=== PATIENT | female | born 1985 | race Caucasian/White ===

== ENCOUNTER 2016-12-17 07:22 | Day surgery (SDC) | payer BC ==
[2016-12-17] VITALS (36 sets, daily range): BP systolic 90–140; BP diastolic 55–81; PULSE 59–113; RESP 13–22; TEMP 97–98.3; O2SAT 90–100; Ht 163.8 cm; Wt 65.0 kg
[~2016-12-17] VITALS: Ht 163.8 cm; Wt 65.0 kg
[~2016-12-17 07:22] MED LIST: BUSP15TA3 PO; CLON0.5T4 PO; HYDR-347 PO; LIDOCAINE 1% (10mg/ml) 2ml SDV INJ ONE; LR 1,000 ML IV SCH; NORMAL SALINE 1,000 ML IV ONE; VENL-69 PO
[2016-12-17 08:07] LABS: BLOOD, URINE NEGATIVE (NEGATIVE); COLOR,URINE YELLOW (YELLOW); LEUKOCYTE ESTERASE ,URINE NEGATIVE (NEGATIVE); NITRITE,URINE NEGATIVE (NEGATIVE); UROBILINOGEN,URINE 0.2 EU/DL (NORMAL)
[2016-12-17 08:08] LABS: BASOPHILS % (AUTO) 0.4 % (0-2); HGB - HEMOGLOBIN 14.8 GM/DL (12-16); IMMATURE GRANULOCYTE # (AUTO) 0.02 T/MM3 (0.00-0.03); IMMATURE GRANULOCYTE % (AUTO) 0.4 % (0.0-0.5); LYMPHOCYTES # (AUTO) 2.2 T/MM3 (1-4.8); LYMPHOCYTES % (AUTO) 38.4 % (23-45); MEAN CORPUSCULAR HGB 32.1 UUG (26-34); MEAN CORPUSCULAR HGB CONC(MCHC 34.4 GM/DL (31-37); MEAN CORPUSCULAR VOLUME 93.3 UM3 (80-100); MEAN PLATELET VOLUME 10.3 UM3 (9.4-12.4); MONOCYTES # (AUTO) 0.4 T/MM3 (0-0.8); MONOCYTES % (AUTO) 6.3 % (0-9.0); NEUTROPHILS #(AUTO)-ABSOLUTE 3.1 T/MM3 (1.8-7.7); NEUTROPHILS % (AUTO) 54.5 % (33-66); RED BLOOD COUNT 4.61 M/MM3 (4.00-5.20); WBC - WHITE BLOOD COUNT 5.7 T/MM3 (4.5-11.0)
[2016-12-17 08:17] LABS: ALBUMIN 4.2 G/DL (3.5-5.0); ALBUMIN/GLOBULIN RATIO 1.4 RATIO (1.1-2.2); ALKALINE PHOSPHATASE 48 U/L (38-126); ALT (SGPT) 24 U/L (9-52); ANION GAP 6 MEQ/L (5-15); AST (SGOT) 18 U/L (14-36); BUN/CREATININE RATIO 10 RATIO (6-26); CALCIUM 9.1 MG/DL (8.4-10.2); CHLORIDE 108 MEQ/L (98-107); CO2 - CARBON DIOXIDE 29 MEQ/L (22-30); CREATININE 0.7 MG/DL (0.7-1.2); GLOMERULAR FILTRATION RATE 97; GLUCOSE 90 MG/DL (65-110); POTASSIUM 4.1 MEQ/L (3.6-5); SODIUM 143 MEQ/L (134-144); TOTAL PROTEIN 7.2 G/DL (6.3-8.2)
--- NOTE | 2016-12-17 08:18 | NUR ---
TEST DOSE TEST DOSE OF KEFZOL GIVEN (1CC) AT THIS TIME IV. WILL CONTINUE TO MONITOR PATIENT FOR ALLERGIC REACTION.
--- NOTE | 2016-12-17 08:40 | ANESPREOP ---
Anesthesia Record Date and Time DATE: 12/17/16 TIME: 08:39 Pre-Op Diagnosis Menorrhea Proposed Surgical Procedure ROBOTIC LAP HYST Allergies: Coded Allergies: Penicillins (Verified Allergy, Mild, HIVES, 12/17/16) Ht/Wt/BMI Height: 5 ' 4.50 " Weight: 62.800 kg BMI: 23.4 kg/m2 Vital Signs Date Time Temp Pulse Resp B/P Pulse Ox O2 Delivery O2 Flow Rate FiO2 12/17/16 07:30 98.3 63 16 109/55 100 Room Air Medications Inpatient Medications Current Medications Medications (Trade) Dose Ordered Sig/Margarette Start Time Stop Time Status Last Admin Dose Admin Lactated Ringer's (Lactated Ringers) 1,000 ml @ 100 mls/hr Q10H 12/17/16 07:00 12/17/16 07:00 DC Buspirone HCl (Buspirone HCl) 15 Mg Tablet, 1 TAB PO BID, (Reported) Last Taken: on 12/16/16 0800 Clonazepam (Clonazepam) 0.5 Mg Tablet, 1 TAB PO DAILY PRN for INSOMNIA, (Reported) Last Taken: on 12/14/16 2100 Hydrocodone/Acetaminophen (Henrietta 7.5-325 Tablet ) 7.5-325 Tablet, 1 TAB PO Q6-8HPRN PRN for PAIN, (Reported) Last Taken: on 12/14/16 0800 Venlafaxine HCl (Venlafaxine HCl ER) 150 Mg Cap.er.24h, 1 CAP PO DAILY, (Reported) Last Taken: on 12/16/16 0800 Currently on Beta Libby: No Medical/Surgical History Anesthesia PMH: Reports: Anxiety, Depression, Renal Disease (HORSESHOE KIDNEY) , Denies: *Diabetes, Anesthesia Reactions (NO AIRWAY ISSUES), Arthritis, Cancer , Clotting Problems, Glaucoma, Malignant Hyperthermia, Sleep Apnea, Thyroid Disease Smoking Status: Current every day smoker Has pt. smoked today?: No # of Packs per Day: 1/4 # of Years: 2 Use Chewing Tobacco?: No Second Hand Exposure: No Substance Use Type: does not use Alcohol Intake: rarely HX of Last Menstrual Period: NOVEMBER 2016 Past Surgical History Orthopedic Surgeries: Abdominal Surgeries: Yes - APPY Genitourinary Surgeries: Cardiac Surgeries: Endocrine Surgeries: Reproductive Surgeries: Yes - X3 ,LAPAROSCOPY Neurological Surgeries: Ear Surgeries: Nose Surgeries: Throat Surgeries: Other Surgeries: Anesthesia Adverse Reactions: FOUND none Family Hx of Anesthesia Advers: none Pertinent Findings Laboratory Tests 12/17/16 07:51 12/17/16 07:52 Test 12/17/16 07:52 Human Chorionic Gonadotropin, Qual Negative (NEGATIVE) EKG Rhythm: Sinus Rhythm Physical Exam Respiratory: Lungs clear Cardiovascular: FOUND Regular rate, rhythm Airway Assessment Mallampati Score: II TMD: 3 Fingerbreadths Neck Extension: Good Overall Assessment: No Airway Concerns ASA: 2 Plan Anesthesia Plan: GETA Discussion Discussed risks/options/alternatives of anesthesia and questions answered. Patient consents. Nursing pain assessment noted. Attestation Statement Prior to the delivery of any anesthetic medication, I examined the patient, developed the plan, obtained the patient's consent and discussed the risk and benefits of the procedure with the patient/guardian. TARA HOLLINS CANE CUTTER Dec 17, 2016 08:40
--- NOTE | 2016-12-17 08:44 | NUR ---
TEST DOSE NO REACTION FROM TEST DOSE OF KEFZOL NOTED AT THIS TIME.
[2016-12-17] MEDS ORDERED: PROPOFOL 200mg 20 ML IV ONE (08:47)
[2016-12-17] MEDS ORDERED: ROCURONIUM 50mg/5ml INJECTION IV ONE (08:47)
[2016-12-17] MEDS ORDERED: BUPIVACAINE 0.25% (2.5mg/ml) INJ 30ml SDV ONE (08:52)
[2016-12-17] MEDS ORDERED: CEFAZOLIN 1 G in NORMAL SALINE 100 ML IV ONE (09:12)
[2016-12-17] MEDS ORDERED: FENTANYL 250mcg/5ml INJECTION ONE (09:27)
[2016-12-17] MEDS ORDERED: ONDANSETRON 4mg/2ml INJECTION ONE (09:43)
[2016-12-17] MEDS ORDERED: DEXAMETHASONE 4mg/ml - 1ml INJECTION ONE (09:43)
[2016-12-17] MEDS ORDERED: ONDANSETRON 4mg/2ml INJECTION IV PRN ×2 (11:00→11:15)
[2016-12-17] MEDS ORDERED: METOCLOPRAMIDE 10mg/2ml INJECTION IV PRN ×2 (11:00→11:15)
[2016-12-17] MEDS ORDERED: KETOROLAC 30mg/ml INJECTION ONE (11:12)
[2016-12-17] MEDS ORDERED: HYDROCODONE/APAP 5 mg/325 mg TABLET PO PRN (11:15)
[2016-12-17] MEDS ORDERED: HYDROMORPHONE 2mg/ml INJECTION IV PRN (11:15)
[2016-12-17] MEDS ORDERED: FENTANYL 100mcg/2ml INJECTION IV PRN (11:15)
--- NOTE | 2016-12-17 11:15 | GYNOPNOTE1 ---
APPLICATOR SPRAYER Postoperative Note Date of Operation: 12/17/16 Preoperative Diagnosis: Dysmenorrhea, Pelvic Pain, Endometriosis Postoperative Diagnosis: Same as Preoperative Hysterectomy: RALH Bilateral Salpingectomy Surgeon: Stacie Cardoza MD Anesthesia Type: general Comments EBL 20cc STACIE CARDOZA MD Dec 17, 2016 11:15
[2016-12-17] MEDS: HYDROMORPHONE 2mg/ml INJECTION IV PRN ×5 (11:37→12:27)
--- NOTE | 2016-12-17 11:40 | NUR ---
ANXIETY DR CARDOZA HERE IN PACU VISITING WITH PT. VERBAL ORDER TO GIVE ALPRAZOLAM 0.25MG PO PRN FOR ANXIETY RECEIVED.
--- NOTE | 2016-12-17 12:20 | NUR ---
PAIN PT HAS RECEIVED 2.0MG DILAUDID IV FOR PAIN OVER A 1HOUR PERIOD OF TIME. PT DESCRIBES PAIN CRAMPING RATING THE PAIN 8/10. CALL PLACED TO ANESTHESIA. ORDER TO ADMINISTER ADDITIONAL 1.0MG DOSE OF DILAUDID RECEIVED.
[2016-12-17] MEDS ORDERED: ALPRAZOLAM 0.25 MG TABLET PO ONE (12:30)
--- NOTE | 2016-12-17 12:52 | NUR ---
PAIN AND ANXIETY PT STATES PAIN AND ANXIETY ARE FINALLY STARTING TO LET UP SOME AND REQUESTS SHE BE ALLOWED TO TRANSFER TO HER ROOM. PT CURRENTLY RATING PAIN 03/05.
--- NOTE | 2016-12-17 12:55 | NUR ---
ARRIVED PT ARRIVED TO ROOM 123 VIA CART WITH RN FROM PACU. PT MOVED HERSELF FROM CART TO BED WITH MINIMAL ASSIST. IVF INFUSING AT THIS TIME. VITALS TO BE CHECKED. BALDWIN CATHETER INDWELLING AT THIS TIME.
--- NOTE | 2016-12-17 13:56 | ANESPO ---
Post-Op Note Date 12/17/16 Time: 13:56 Status Pt Participated in Evaluation: Pt participated in person Vital Signs Date Time Temp Pulse Resp B/P Pulse Ox O2 Delivery O2 Flow Rate FiO2 12/17/16 13:45 76 16 105/67 99 Room Air 12/17/16 13:00 97.8 12/17/16 11:45 2.00 Respiratory Function: Airway patent Telemetry Pattern: SR Mental Status: Alert/oriented Pain Level Intensity: 7 Hydration: IV infusing Complications during Recovery None apparent Follow-Up Instructions Instructions Per Surgeon TARA HOLLINS CRNA Dec 17, 2016 13:56
[2016-12-17] MEDS: IBUPROFEN 800 MG TABLET PO PRN (14:12)
--- NOTE | 2016-12-17 14:25 | OPNOTEF ---
DATE OF OPERATION 12/17/2016 PREOPERATIVE DIAGNOSES 1. Dysmenorrhea. 2. Pelvic pain. 3. Endometriosis. POSTOPERATIVE DIAGNOSES 1. Dysmenorrhea. 2. Pelvic pain. 3. Endometriosis. PROCEDURE Robotic-assisted laparoscopic hysterectomy with bilateral salpingectomy, drainage of left ovarian cyst. SURGEON Stacie Contreras MD ANESTHESIA General endotracheal (Jorje Awan CRNA) EBL 20 ml. OPERATIVE FINDINGS Hemorrhagic cyst of the left ovary. Areas of scarring in the posterior peritoneum consistent with old endometriosis. Normal-appearing uterus and fallopian tubes with small anterior fibroid on the uterus. DESCRIPTION OF PROCEDURE Ms. Pichardo was brought to the OR and placed on the OR table in a comfortable supine position. She was given general anesthesia and intubated without difficulty. She was then placed in the standard lithotomy position and I performed a bimanual exam. The abdomen, perineum and vagina were prepped and draped in the usual sterile fashion. The cervix was then visualized with a freeway speculum. The cervix was grasped with a single-tooth tenaculum and the uterine cavity sounded to a depth of 8 cm. Simple ligatures of 2-0 Vicryl were placed through the cervix at 3 and 6 o'clock positions. The cervix was then serially dilated until the smaller VCare uterine manipulator could be inserted. This was done. The cup was secured tightly to the cervicovaginal angle with the sutures and the balloon filled. We removed our tenaculum and our retractor and then placed a Mcguire catheter to dependent drain. She was then moved to the low lithotomy position and I re-gloved. The supraumbilical region was infiltrated dilute Marcaine. A 12 mm incision was made with a sharp knife. Tenting up the abdomen, the Veress needle was inserted through this incision. The abdomen was then insufflated with CO2 until pressures of 12-15 mmHg were achieved. We removed the Veress needle. Again tenting up the abdomen, a 12 mm trocar was placed through the incision. The sheath was left in place and a 0- degree laparoscope placed through this. Findings were as described above. We then placed three operative ports in the following fashion. We transilluminated the area, infiltrated with dilute Marcaine, made an incision and placed the ports under direct visualization. There were two 8 mm in the patient's right and one in the left, later docked to the robot, and then a slightly larger one in the left upper quadrant for use by the high school assistant football coach. After placement of the ports, we placed the patient in steep Trendelenburg and docked the robot. The uterus was elevated with and explored with findings as above and I sat at the console. The left ovary was elevated. The small area of hemorrhagic cyst had already drained. We suctioned this out, I used monopolar cautery to open what appeared to be a second small cyst. By making a small hole in it, it drained a small amount of clear blood and then stopped. The left fallopian tube was grasped and then cut across the fimbria using monopolar electrocautery at the site of the prior tubal ligation. It was excised and taken out through the operative port. The round ligament on the left then was grasped with bipolar fenestrated cautery. It was cauterized thoroughly and then cut through with monopolar scissors. Please note this is the method used to cut through tissue throughout the procedure unless otherwise described. The ovary was then elevated and the uteroovarian ligament was cut through on the same side, as was the mesosalpinx to the level of the round ligament on the left. Of note is that we could easily see the ureter on the right side coursing well below our area of operation. The patient had some adhesions of the small bowel very low on the left interfering with this and because of the prior scarring of endometriosis we really were never able to see it on the left. However, we were never operating below the infundibulopelvic ligament in that area and so I feel comfortable that we safely avoided it. We then explored the bladder adhesions. The vesicouterine fold of peritoneum was tented up. I carefully incised using monopolar cautery and staying close to the uterus in a transverse fashion. I then bluntly was able to dissect this free until we were able to find the uterine vessels on the left. These were cauterized thoroughly, then cut. Hemostasis was rechecked on the left and was under excellent control. We then repeated the procedure in the exact same fashion on the right. There were bigger blood vessels on the right and there was a bit more difficulty in the dissection off of the bladder of vesicouterine fold of peritoneum, but we were able to accomplish this without much difficulty. After securing the right uterine vessels, we then returned to the anterior uterine segment. We could easily see where the cervicovaginal angle was by the imprint made with the uterine manipulator. We carefully bluntly dissected the bladder below this. At this point I felt we were ready to remove the uterus. I used monopolar cautery cut feature to cut circumferentially through the vaginal mucosa around the cervix. The high school assistant football coach then removed the cervix and uterus through the vagina. After restoring the pneumoperitoneum, we irrigated copiously with sterile normal saline, suctioning that out and observing for hemostasis. There was an area on the right inferior cuff that wanted to continue to bleed. We removed the scissors at got a fenestrated grasper to grasp this up and then was able to get around the vessel easily with monopolar cautery. At this point we placed a needle driver manager in and a 2-0 Covidien barbed suture. I used this to secure to close the vaginal cuff in a running nonlocking fashion. I made sure that the angles were secured to the uterosacral ligaments bilaterally and the vaginal mucosa was included throughout. I doubled back for a two-layer closure, then snipped the suture at the level of the tissue. The needle and remaining suture was then passed out. We irrigated copiously once again with sterile normal saline, suctioning that out. Hemostasis was under control. The bladder was then filled fully with sterile saline. The bladder was well below our area of operation. There was no evidence of extrusion. We then drained the bladder once again and allowed the pneumoperitoneum to drop down as low as it would go with the AirSeal. All sites stayed hemostatic. I then re-gowned and re-gloved. While I was doing this, the high school assistant football coach undocked the robot and removed the robotic instruments. Once back at bedside, we placed the camera to reinspect the operative sites which remained hemostatic. We then took the patient out of Trendelenburg and removed our operative ports under direct visualization. At the end we used the AirSeal to suck out all of the pneumoperitoneum, removing the camera and its port at the last. I was very careful throughout the procedure not to touch the camera to any tissue. We then reapproximated fascia at the supraumbilical incision with a simple ligature of 2-0 Vicryl. Skin edges at all incisions were reapproximated with subcuticular style 3-0 undyed Vicryl. The wounds were dressed with sterile dressings. Counts were correct postoperatively x 2. The urine remained clear and free flowing throughout the procedure. I then reinspected the vaginal cuff. It was hemostatic. I palpated it. It was intact. We returned Ms. Pichardo to the supine position. She was brought out from under anesthesia, extubated and transferred to recovery in stable condition. ROBB
[2016-12-17] MEDS: VENLAFAXINE 150 MG PO SCH (16:49)
[2016-12-17] MEDS: BUSPIRONE 15 MG PO SCH (16:49)
[2016-12-17] MEDS: MORPHINE SULFATE 4 MG SYRINGE IV PRN (19:38)
[2016-12-18] VITALS: BP 106/64; PULSE 66; RESP 18; TEMP 97.1; O2SAT 99
[2016-12-18] MEDS: MORPHINE SULFATE 4 MG SYRINGE IV PRN (04:48)
[2016-12-18 04:56] VITALS: BP 110/67; PULSE 93; RESP 18; TEMP 97.6; O2SAT 98
--- NOTE | 2016-12-18 04:58 | NUR ---
Cares assumed Report received from WILFRED Rudolph BSN. Cares assumed at this time. Pt is a&o x4. Recently received pain medication. Denies any further needs after VS assessed.
--- NOTE | 2016-12-18 06:21 | NUR ---
Physician notified Tele hospitalist notified of patient complaints of itching after receiving morphine for pain. Pt requests to have Benedryl to help relieve itching. New orders received and noted at this time.
[2016-12-18] MEDS ORDERED: DiphenhydrAMINE 25 MG CAPSULE PO ONE (06:30)
[2016-12-18 08:02] VITALS: BP 110/66; PULSE 75; RESP 16; TEMP 98.2; O2SAT 98
[2016-12-18 08:15] VITALS: PULSE 75; RESP 16
[2016-12-18] MEDS: BUSPIRONE 15 MG PO SCH (08:15)
[2016-12-18] MEDS: VENLAFAXINE 150 MG PO SCH (08:32)
[2016-12-18] MEDS: IBUPROFEN 800 MG TABLET PO PRN (10:55)
--- NOTE | 2016-12-18 11:00 | NUR ---
PHYSICIAN CONTACT DR. PATEL IN ROOM FOR PT EVAL/ASSMT
--- NOTE | 2016-12-18 11:16 | GSPOSTPN ---
EGG WORKER Post Op Progress Note 12/18/16 POD1 Pain: Controlled Nausea and Vomiting: No Nausea/Vomiting Ambulating: Yes Vital Signs Date Time Temp Pulse Resp B/P Pulse Ox O2 Delivery O2 Flow Rate FiO2 12/18/16 08:15 75 16 12/18/16 08:02 98.2 110/66 98 Room Air 12/17/16 11:45 2.00 Urine Output: Good General: Alert and Oriented Abdomen: Non-tender, Soft, Non-distended Incision: Clean/Dry/Intact, No Erythema Edema: None DC and F/U in 1-2 weeks, Continue Routine Care VICTORINO PATEL MD Dec 18, 2016 11:16
[2016-12-18] MEDS ORDERED: HYDR-347 PO (11:22)
[2016-12-18] MEDS ORDERED: DOCU-168 PO (11:22)
[2016-12-18] MEDS ORDERED: IBUP-1547 PO (11:22)
--- NOTE | 2016-12-18 11:45 | NUR ---
STATUS PT TOLERATING REGULAR DIET WITHOUT N/V. UP IN ROOM WITH STAND BY ASSIST. USING PO PAIN MEDS TO MANAGE PAIN.
--- NOTE | 2016-12-18 12:35 | NUR ---
CM CM IN TO VISIT WITH PT. SHE IS ALERT AND ORIENTED. SHE PLANS TO DC HOME. SHE DENIES DC NEEDS. SHE ANTICIPATES DC TO HOME TODAY. LACE SCORE IS 4. NO FURTHER INTERVENTION NEEDED. SHE IS GIVEN CM CONTACT INFORMATION. Addendum: 12/18/16 at 1237 by SCHUYLER ABDUL RN Amended: Links added.
== END 2016-12-18 12:10 | disposition home or self-care (01) ==
LOC: SCU 07:22 → SRG 07:22 → SCU 12-18 12:10
PROVIDERS: ATTEND Obstetrics & Gynecology
DX: N80.0 Endometriosis of uterus (principal); N83.202 Unspecified ovarian cyst, left side; K66.0 Peritoneal adhesions (postprocedural) (postinfection); F32.9 Major depressive disorder, single episode, unspecified; F17.210 Nicotine dependence, cigarettes, uncomplicated; Z79.899 Other long term (current) drug therapy; Z88.0 Allergy status to penicillin
CPT/HCPCS: 36415; 49322; 58552; 80053; 81003; 84703; 85025; 86850; 86900; 86901; 99406; J0330; J1100; J1170; J1885; J2405; J2704; J3010; J7030; S0020; S2900